=== PATIENT | female | born 1965 | race Caucasian/White ===

== ENCOUNTER → 2023-06-01 10:00 | Outpatient (REF) | payer BC, SELFPAY | LOC: RAD 10:00 | PROVIDERS: ATTENDING PHYSICIAN Physician Assistant Medical | DX: R22.31 Localized swelling, mass and lump, right upper limb (principal); M25.512 Pain in left shoulder | CPT/HCPCS: 72052; 73030; 76882 ==

== ENCOUNTER 2023-08-25 02:11 | Emergency (ER) | payer BC, SELFPAY ==
[2023-08-25 03:04] VITALS: BP 136/91
--- NOTE | 2023-08-25 03:12 | ED.GENMED ---
History of Present Illness
<CAITLIN Cummins - Last Filed: 08/25/23 05:54>
General
Chief Complaint: Fall
Source: patient
Exam Limitations: none
Time Seen by Provider: 08/25/23 03:11
Nursing documentation reviewed up to this point in time: agreed with
History of Present Illness
History of Present Illness:
57 year old female presents for evaluation of right shoulder pain following a fall. Pt reports that at approximately 18:00 on 08/23 she slipped on her wet bathroom floor and fell onto her right elbow and shoulder. Denies LOC prior to and following
the fall, and denies hitting her head. She currently endorses 8/10 right shoulder pain especially with overhead movement. She also endorses intermittent tingling in her right fingers. Currently denies right elbow pain. Pt reports that she took a
muscle relaxer approximately 2 hours ago with no pain relief reported. She has not taken any other medications for the pain. She denies neck pain, spine tenderness, SOB, bleeding, and radiation of the pain.
Past History
<CAITLIN Cummins - Last Filed: 08/25/23 05:54>
Past History
ED Past Medical History: None
ED Past Surgical History: None
Social History
Tobacco: Smoker
Review of Systems
<CAITLIN Cummins - Last Filed: 08/25/23 05:54>
Review of Systems
Allergies reviewed?: Yes
Constitutional: Reports no symptoms
EENT: Reports no symptoms
Respiratory: Reports no symptoms
Cardiac: Reports no symptoms
ABD/GI: Reports no symptoms
Musculoskeletal: Reports joint pain (right shoulder ) and muscle pain (right triceps area)
Skin: Reports no symptoms
Neurological: Reports other (intermittent tingling in right fingers )
Endocrine: Reports no symptoms
Hematologic/Lymphatic: Reports no symptoms
Psychiatric: Reports no symptoms
Phy Exam
<CAITLIN Cummins - Last Filed: 08/25/23 05:54>
General Physical Exam
General Presentation: well appearing
General age: appears stated age
General Skin: warm
General Habitus: normal
General Mental: alert
General Hydration: appears well hydrated
Cardiovascular Exam
Cardiovascular Exam: regular rate/rhythm and no murmur
Pulmonary Exam
Pulmonary Exam: lungs clear and no respiratory distress
Neurological Exam
Neurological Exam: alert, oriented x3 and no sensory deficits
Musculoskeletal Exam
Musculoskeletal Exam: edema (mild swelling of right upper arm/shoulder ), neuro vasc intact and other (limited ROM with R shoulder abduction and overhead movement )
Skin Exam
Skin Exam: normal color and warm/dry
Course
<CAITLIN Cummins - Last Filed: 08/25/23 05:54>
Orders/Labs/Results
Orders:
Orders
08/25/23
CR Shoulder, Trauma - Right Urgent
Reason For Exam: FALL
08/25/23 03:48
Sling Right-Treatment ONCE
Ketorolac [Toradol] 30 mg IM NOW STA
Vital Signs
Initial and Last Documented VS:
Initial Vital Signs
Temp Pulse Resp BP Pulse Ox
98.6 F 94 20 136/91 95
08/25/23 03:04 08/25/23 03:04 08/25/23 03:04 08/25/23 03:04 08/25/23 03:04
Last Documented Vital Signs
Temp Pulse Resp BP Pulse Ox
98.6 F 94 20 136/91 95
08/25/23 03:04 08/25/23 03:04 08/25/23 03:04 08/25/23 03:04 08/25/23 03:04
<Ajay Romano DO - Last Filed: 08/25/23 03:59>
Orders/Labs/Results
Orders:
Orders
08/25/23
CR Shoulder, Trauma - Right Urgent
Reason For Exam: FALL
08/25/23 03:48
Sling Right-Treatment ONCE
Ketorolac [Toradol] 30 mg IM NOW STA
Vital Signs
Initial and Last Documented VS:
Initial Vital Signs
Temp Pulse Resp BP Pulse Ox
98.6 F 94 20 136/91 95
08/25/23 03:04 08/25/23 03:04 08/25/23 03:04 08/25/23 03:04 08/25/23 03:04
Last Documented Vital Signs
Temp Pulse Resp BP Pulse Ox
98.6 F 94 20 136/91 95
08/25/23 03:04 08/25/23 03:04 08/25/23 03:04 08/25/23 03:04 08/25/23 03:04
<CAITLIN Cummins - Last Filed: 08/25/23 05:54>
MDM/Problems Addressed
Differential Diagnosis Includes:
Right shoulder contusion, GH joint dislocation, right clavicle fracture, proximal humerus fracture
<CAITLIN Cummins - Last Filed: 08/25/23 05:54>
*Critical Care Note
Total Time (30-74mins, 75-104mins- exclusive of procedures): Not Applicable
ED Attending Note
<CAITLIN Cummins - Last Filed: 08/25/23 05:54>
-
Portions of this chart may have been created with voice recognition software.� Occasional wrong word or��sound alike� substitutions may have occurred due to the inherent limitations of voice recognition software.
<Ajay Romano DO - Last Filed: 08/25/23 03:59>
ED Attending Note
Patient seen and examined by attending physician: Yes
I performed the substantive portion of visit, reviewed & personally made and approve the management plan that is documented in note by myself or GET.: Yes
ED Attending Note:
Pleasant 57-year-old female who slipped and fell on wet tile floor. Patient has been having pain since 6 PM when the incident occurred. She denies head injury or loss of consciousness. Patient states that she does have some movement in the
shoulder but it is worse with overhead movements. Patient reports mild pain in her fingers. Denies elbow or wrist pain. Patient was seen in conjunction with the PA student. I have reviewed and agree with the history and treatment plan presented.
On my independent physical exam, patient is awake, alert, and oriented x3 moderate acute distress. Ice seems to be helping her right shoulder. X-ray reviewed by me during downtime procedures, appears normal. Patient to be put in a sling. She
will get a shot of Toradol. We will give her a prescription for diclofenac. She will follow-up with [facility]. She has a prior relationship with [facility] and prefers their service.
Discharge Plan
Departure
Patient Disposition: Home (Routine Discharge)
Date of Disposition: 08/25/23
Time of Disposition: 03:53
Patient with high blood pressure during this ER visit?: Yes
Condition: Good
Discharge Problem:
Acute shoulder pain
Instructions: Preventing falls in adults, How to Use a Shoulder Sling ED, BLOOD PRESSURE
Prescriptions:
New
diclofenac sodium 75 mg tablet,delayed release (DR/EC)
75 mg PO BID Qty: 10 0RF
No Action
Nasacort Allergy
1 spray intranasal DAILY
Wellbutrin
300 mg PO DAILY
Zyrtec
1 tab PO DAILY
[facility] [[facility]
Stand Alone Forms: Return to Work
Activity Restrictions/Additional Instructions:
It was a pleasure meeting you and taking part in your care. We hope for your continued healing and wellness.
Please read discharge instructions in their entirety. However, they are for general education and may not describe your exact diagnosis at discharge. Information on your ER visit and medical conditions were discussed with you along with appropriate
follow up information...
If indicated, please take your medications as instructed and indicated on discharge paperwork.
Please schedule a follow up appointment as directed. Call to schedule an appointment
Please return to the emergency department with ANY change in, persisting, or worsening of symptoms. If any of your symptoms do not improve, or persist, or become more severe within 6-12 hours, please return to the emergency department for further
care.
Please return to the emergency department if you develop a headache, neck pain/stiffness, fever greater than 100.4F, chest pain, shortness of breath, persistent nausea, vomiting, slurred speech, difficulty walking, numbness/tingling, weakness, signs
of infection or any other symptoms that are worrisome to you.
If you have any questions or concerns please do not hesitate to call the Hospital at or E-mail me directly at [email or web address]
Interventions
Interventions:
*Risk Screen - Suicide Last Done: 08/25/23 03:28
*General Assessment Last Done: 08/25/23 03:28
*Neglect/Abuse Screening Last Done: 08/25/23 03:28
ED- Fall Risk Assessment Last Done: 08/25/23 03:28
*ED COVID-19 Vaccine History Last Done: 08/25/23 03:28
ED-Musculoskeletal Assessment Last Done: 08/25/23 03:28
ED- Neurological Assessment Last Done: 08/25/23 03:52
ED-Skin Assessment Last Done: 08/25/23 03:28
Discharge Date and Time
Print Language: IRISH
[2023-08-25 03:40] VITALS: BMI 34.3
[2023-08-25] MEDS: TORADOL 30 MG IM (03:52)
== END 2023-08-25 04:00 | disposition home or self-care (01) ==
LOC: EMR 02:11
PROVIDERS: EMERGENCY PHYSICIAN Student in an Organized Health Care Education/Training Program; FAMILY PHYSICIAN Physician Assistant Medical
DX: S49.91XA Unspecified injury of right shoulder and upper arm, initial encounter (principal); M25.511 Pain in right shoulder; R20.2 Paresthesia of skin; M79.18 Myalgia, other site; M79.89 Other specified soft tissue disorders; W01.0XXA Fall on same level from slipping, tripping and stumbling without subsequent striking against object, initial encounter; Y92.002 Bathroom of unspecified non-institutional (private) residence as the place of occurrence of the external cause; R03.0 Elevated blood-pressure reading, without diagnosis of hypertension; G47.30 Sleep apnea, unspecified; F17.200 Nicotine dependence, unspecified, uncomplicated
CPT/HCPCS: 99283; 73030

== ENCOUNTER → 2023-09-25 16:59 | Outpatient (REF) | payer BC, SELFPAY | LOC: WDC 16:59 | PROVIDERS: ATTENDING PHYSICIAN Physician Assistant Medical | DX: Z12.31 Encounter for screening mammogram for malignant neoplasm of breast (principal) | CPT/HCPCS: 77063; 77067 ==

== ENCOUNTER 2023-11-08 05:56 | Day surgery (SDC) | payer BC, SELFPAY ==
[2023-10-26 08:34] VITALS: BMI 31.2
[2023-11-08] VITALS (8 sets, daily range): BP systolic 127–147; BP diastolic 80–91; BMI 31.2; BMI 32.9
[2023-11-08] MEDS: CELEBREX 200 MG PO (06:32)
[2023-11-08] MEDS: TYLENOL 1000 MG PO (06:32)
[2023-11-08] MEDS: NORMOSOL-R/PLASMALYTE-A 1000 IV (06:40)
== END 2023-11-08 10:45 | disposition home or self-care (01) ==
LOC: SDS 05:56
PROVIDERS: ATTENDING PHYSICIAN Orthopaedic Surgery Hand Surgery; FAMILY PHYSICIAN Physician Assistant Medical
DX: M75.41 Impingement syndrome of right shoulder (principal); M75.121 Complete rotator cuff tear or rupture of right shoulder, not specified as traumatic; W19.XXXA Unspecified fall, initial encounter
CPT/HCPCS: 29827; 29826; 29823; 93005; C1713

== ENCOUNTER → 2024-09-25 17:12 | Outpatient (REF) | payer BC, SELFPAY | LOC: WDC 17:12 | PROVIDERS: ATTENDING PHYSICIAN Physician Assistant Medical | DX: Z12.31 Encounter for screening mammogram for malignant neoplasm of breast (principal) | CPT/HCPCS: 77063; 77067 ==